=== PATIENT | male | born 1990 | race Caucasian/White ===

== ENCOUNTER 2020-06-07 15:45 | Emergency (ER) | payer SELFPAY ==
[2020-06-07 17:44] LABS: ABSOLUTE MONOCYTES (AUTO) 0.6 10^3/uL (0.1-1.4); ABSOLUTE NEUT (AUTO) 4.2 10^3/uL (1.7-8.2); BASOPHILS % (AUTO) 0.3 % (0-2); EOSINOPHILS % (AUTO) 0.2 % (0-6); HEMATOCRIT 36.4 % (37.9-51.0); HEMOGLOBIN 12.7 g/dL (13.5-17.0); LYMPHOCYTES % (AUTO) 17.4 % (13-45); MEAN CORPUSCULAR HEMOGLOBIN 34.6 pg (27.0-33.4); MEAN CORPUSCULAR HGB CONC 34.9 g/dL (32.0-36.0); MEAN CORPUSCULAR VOLUME 99 fl (80-97); MONOCYTES % (AUTO) 10.7 % (3-13); PLATELET COUNT 104 10^3/uL (150-450); RED BLOOD COUNT 3.67 10^6/uL (4.35-5.55); RED CELL DISTRIBUTION WIDTH 11.9 % (11.5-14.0); SEGMENTED NEUTROPHILS % (AUTO) 71.4 % (42-78); TOTAL CELLS COUNTED % (AUTO) 100 %; WHITE BLOOD COUNT 5.9 10^3/uL (4.0-10.5)
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
[2020-06-07 18:02] LABS: ALBUMIN 3.5 g/dL (3.5-5.0); ALKALINE PHOSPHATASE 99 U/L (38-126); ANION GAP 10 (5-19); ASPARTATE AMINO TRANSFERASE 122 U/L (17-59); BILIRUBIN,DIRECT 0.9 mg/dL (0.0-0.4); BILIRUBIN,TOTAL 3.5 mg/dL (0.2-1.3); BLOOD UREA NITROGEN 6 mg/dL (7-20); CALCIUM 8.3 mg/dL (8.4-10.2); CARBON DIOXIDE 27 mmol/L (22-30); CHLORIDE 91 mmol/L (98-107); GLUCOSE 76 mg/dL (75-110); TOTAL PROTEIN 6.5 g/dL (6.3-8.2); URINE AMPHETAMINES SCREEN NEGATIVE; URINE BARBITURATES SCREEN NEGATIVE; URINE BENZODIAZEPINES SCREEN NEGATIVE; URINE COCAINE SCREEN NEGATIVE; URINE MARIJUANA (THC) SCREEN NEGATIVE; URINE METHADONE SCREEN NEGATIVE; URINE PHENCYCLIDINE SCREEN NEGATIVE
[2020-06-07 18:03] LABS: ACETAMINOPHEN < 10 ug/mL (10-30); ALCOHOL < 10 mg/dL (NONE DETECTED); SALICYLATE < 1.0 mg/dL (2.0-20.0)
[2020-06-07 18:05] LABS: POTASSIUM 2.8 mmol/L (3.6-5.0)
[2020-06-07] MEDS ORDERED: POTASSIUM CHLORIDE 20 MEQ PACKET PO ONE (18:09)
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
[2020-06-07 19:14] LABS: APPEARANCE,URINE SLIGHTLY-CLOUDY; BILIRUBIN,URINE NEGATIVE (NEGATIVE); CALCIUM OXALATE CRYSTALS,URINE FEW /HPF; COLOR,URINE AMBER; GLUCOSE, URINE NEGATIVE (NEGATIVE); KETONES,URINE 20 mg/dL (NEGATIVE); LEUKOCYTE ESTERASE,URINE NEGATIVE (NEGATIVE); NITRITE,URINE NEGATIVE (NEGATIVE); PROTEIN,URINE 100 mg/dL (NEGATIVE); URINE SPECIFIC GRAVITY 1.027
[2020-06-07 19:24] VITALS: BP 120/90
--- NOTE | 2020-06-08 01:09 | EKG REPORT ---
SEVERITY:- BORDERLINE ECG - SINUS RHYTHM BORDERLINE T ABNORMALITIES, INFERIOR LEADS BORDERLINE ST ELEVATION, ANTERIOR LEADS : Confirmed by: Emmy Stein 08-Jun-2020 01:08:51
== END 2020-06-07 19:24 | disposition home or self-care (01) ==
LOC: ER 15:45
DX: F41.9 Anxiety disorder, unspecified (principal); F32.9 Major depressive disorder, single episode, unspecified; E87.6 Hypokalemia; F10.10 Alcohol abuse, uncomplicated; R44.0 Auditory hallucinations; R44.1 Visual hallucinations; R68.83 Chills (without fever); R51 Headache; M79.661 Pain in right lower leg; M25.50 Pain in unspecified joint; R05 Cough; R63.4 Abnormal weight loss; R53.83 Other fatigue; Z87.891 Personal history of nicotine dependence; Z88.1 Allergy status to other antibiotic agents; Z88.8 Allergy status to other drugs, medicaments and biological substances; Z20.828 Contact with and (suspected) exposure to other viral communicable diseases
CPT/HCPCS: 93005; 99285; 36415; 80307 ×4; 83735; 84443; 85025; 87635; 80053; 81001; 93010; J3490; C9803

== ENCOUNTER 2020-06-12 16:42 | Emergency (ER) | payer SELFPAY ==
[2020-06-12 17:57] LABS: ABSOLUTE BASOPHILS # (AUTO) 0.1 10^3/uL (0.0-0.2); ABSOLUTE LYMPHOCYTES (AUTO) 2.5 10^3/uL (0.5-4.7); ABSOLUTE MONOCYTES (AUTO) 0.6 10^3/uL (0.1-1.4); ABSOLUTE NEUT (AUTO) 2.6 10^3/uL (1.7-8.2); BASOPHILS % (AUTO) 1.3 % (0-2); EOSINOPHILS % (AUTO) 0.6 % (0-6); HEMATOCRIT 39.6 % (37.9-51.0); LYMPHOCYTES % (AUTO) 43.2 % (13-45); MEAN CORPUSCULAR HEMOGLOBIN 35.5 pg (27.0-33.4); MEAN CORPUSCULAR HGB CONC 35.3 g/dL (32.0-36.0); MEAN CORPUSCULAR VOLUME 100 fl (80-97); MONOCYTES % (AUTO) 11.1 % (3-13); PLATELET COUNT 278 10^3/uL (150-450); RED BLOOD COUNT 3.94 10^6/uL (4.35-5.55); RED CELL DISTRIBUTION WIDTH 12.3 % (11.5-14.0); SEGMENTED NEUTROPHILS % (AUTO) 43.8 % (42-78); TOTAL CELLS COUNTED % (AUTO) 100 %; WHITE BLOOD COUNT 5.8 10^3/uL (4.0-10.5)
--- NOTE | 2020-06-12 18:00 | ER Document Report ---
ED General - General Chief Complaint: Psych Problem Stated Complaint: PSYCH Time Seen by Provider: 06/12/20 17:47 Notes: 30-year-old male presents emergency department due to desire for alcohol rehab and needing medical clearance. Patient was apparently seen here on for possible seizure versus psychotic episode, was treated at that time, also found to have a potassium of 2.8, stabilized and discharged home. Since then the patient is complaining that he has been having some shaking, feeling scared, having some auditory hallucinations that he states are unformed voices that are murmuring as well as some visual hallucinations that he describes as silhouettes of people. Also complains of some muscle cramping, some intermittent sweats and chills but no fevers and some blurry vision. Due to the symptoms when he called [facility] for help getting into an inpatient alcohol rehab program he was told that he needed to come to the emergency department for medical clearance. [facility] to try to pursue inpatient placement for him for alcohol rehab. Patient states he used to drink approximately half a handle of vodka a day and now he is drinking approximately a quarter of a handle of hard liquor a day. Last alcohol intake was just prior to arrival. TRAVEL OUTSIDE OF THE [place]. IN LAST 30 DAYS: No - Related Data Allergies/Adverse Reactions: cefaclor [From Ceclor] Allergy (Verified 06/07/20 16:05) diphenhydramine [From Benadryl] Allergy (Verified 06/07/20 16:05) Past Medical History - General Information source: Patient, Friend - Social History Smoking Status: Never Smoker Frequency of alcohol use: Heavy - 1/4 handle of hard liquor a day Drug Abuse: None Family History: Reviewed & Not Pertinent Psychiatric Medical History: Reports: Hx Anxiety - never diagnosed, Hx Depression - never diagnosed Past Surgical History: Reports: Hx Orthopedic Surgery - right leg Review of Systems - Review of Systems Constitutional: See HPI, Chills, Diaphoresis. denies: Fever EENT: See HPI, Blurred vision Cardiovascular: No symptoms reported Respiratory: No symptoms reported Gastrointestinal: No symptoms reported Musculoskeletal: See HPI, Other - Muscle cramping. Neurological/Psychological: See HPI, Hallucinations. denies: Homicidal ideation, Suicidal ideation -: Yes All other systems reviewed and negative Physical Exam - Vital signs Vitals: Temp Pulse Resp BP Pulse Ox 98.8 F 120 H 20 148/94 H 98 06/12/20 16:48 06/12/20 16:48 06/12/20 16:48 06/12/20 16:48 06/12/20 16:48 Interpretation: Hypertensive, Tachycardic - Notes Notes: GENERAL: Alert, interacts well. No acute distress. HEAD: Normocephalic, atraumatic EYES: Pupils equal, round and reactive to light, extraocular movements intact. ENT: Oral mucosa moist, tongue midline. NECK: Full range of motion, supple, trachea midline. LUNGS: Clear to auscultation bilaterally, no wheezes, rales or rhonchi, no respiratory distress. HEART: Mildly tachycardic rate and rhythm, no murmurs, gallops, rubs. ABDOMEN: Soft, nontender, nondistended, bowel sounds present in all 4 quadrants. EXTREMITIES: Moves all 4 extremities spontaneously, no edema, radial and dorsalis pedis pulses 2/4 bilaterally. No cyanosis. NEUROLOGICAL: Alert and oriented x3, normal speech, biceps and patellar DTRs 2+ bilaterally. No tremor, no hyperreflexia, no asterixis. PSYCH: Normal mood, normal affect. SKIN: Warm, Dry, normal turgor. Course - Re-evaluation Re-evalutation: 06/12/20 18:49 CBC unremarkable, CMP shows slightly low potassium at 3.4 which will be repleted by mouth, AST and ALT are both elevated, they were elevated previously, ALT is only slightly worsened, this is not acutely concerning for acute liver failure given how minimal the elevation is, urinalysis is unremarkable, salicylates and acetaminophen are undetectable, urine drug screen is negative, alcohol level is 336. Patient currently has minimal signs of alcohol withdrawal, he is not unstable. Repeat vitals show resolution of the tachycardia. We will continue to work with [facility] to pursue placement for alcohol detox. 06/12/20 19:33 Patient is medically cleared. Discussed with [facility], [facility] agrees with allowing patient to be discharged to home while they continue to seek an inpatient alcohol detox bed. Discussed with patient the option of continuing to drink or using Librium to treat any symptoms of alcohol withdrawal that he may develop. Patient would like to have the option of using Librium. Adrian who is a commercial loan closer will control the medication. Patient will be also given limited dosages of potassium to take at home. Discharged home. 06/12/20 19:36 Patient had similar vague unformed auditory and visual hallucinations when he was in here a few days ago. No change, no indication for acute psychiatric consultation. - Vital Signs Vital signs: Temp Pulse Resp BP Pulse Ox 98.5 F 99 16 123/77 99 06/12/20 18:49 06/12/20 18:49 06/12/20 18:49 06/12/20 18:49 06/12/20 18:49 - Laboratory Result Diagrams: 06/12/20 17:35 06/12/20 17:35 Laboratory results interpreted by me: 06/12/20 06/12/20 06/12/20 17:35 17:35 17:35 RBC 3.94 L MCV 100 H MCH 35.5 H Potassium 3.4 L Chloride 108 H BUN 6 L AST 119 H ALT 100 H Urine Urobilinogen 2.0 H Salicylates < 1.0 L Acetaminophen < 10 L Serum Alcohol 336 H* - EKG Interpretation by Me Additional EKG results interpreted by me: 06/12/20 18:00 EKG shows sinus tachycardia at a rate of 107, normal axis, slight right axis deviation, no ST segment elevations or depressions, no T wave inversions per my interpretation. Discharge - Discharge Clinical Impression: Alcohol abuse, Hypokalemia Condition: Stable Disposition: HOME, SELF-CARE Additional Instructions: You may either continue to drink alcohol at approximately her baseline intake or you may use the Librium instead. If you choose to use the Librium please do not start taking it until you are having increasing symptoms of withdrawal such as tremor, increasing hallucinations, sweats. Currently your alcohol level is 336, you should not need Librium for at least 5 hours. When you start feeling like you need the Librium you may take 2 tablets every 4 hours as needed for worsening signs of withdrawal. If you feel like you need more than 2 tablets every 4 hours you should return to the emergency department. [facility] is aware that you have been medically cleared, they are aware that you are being discharged home, they have received a copy of your laboratory studies. I have also printed you a copy of your laboratory studies. They are going to continue to work to find you an inpatient detox bed over the next few days. Prescriptions: Chlordiazepoxide HCl 2 tab PO Q4HP PRN #24 capsule PRN Reason: Withdrawal Symptoms Potassium Chloride 40 meq PO DAILY #8 tablet.er Forms: Return to Work
[2020-06-12 18:01] LABS: APPEARANCE,URINE CLEAR; BILIRUBIN,URINE NEGATIVE (NEGATIVE); COLOR,URINE YELLOW; GLUCOSE, URINE NEGATIVE (NEGATIVE); KETONES,URINE NEGATIVE (NEGATIVE); LEUKOCYTE ESTERASE,URINE NEGATIVE (NEGATIVE); NITRITE,URINE NEGATIVE (NEGATIVE); PROTEIN,URINE NEGATIVE (NEGATIVE); URINE SPECIFIC GRAVITY 1.012
[2020-06-12 18:15] LABS: ALBUMIN 3.7 g/dL (3.5-5.0); ALKALINE PHOSPHATASE 95 U/L (38-126); ANION GAP 6 (5-19); ASPARTATE AMINO TRANSFERASE 119 U/L (17-59); BILIRUBIN,DIRECT 0.2 mg/dL (0.0-0.4); BILIRUBIN,TOTAL 0.6 mg/dL (0.2-1.3); BLOOD UREA NITROGEN 6 mg/dL (7-20); CALCIUM 8.4 mg/dL (8.4-10.2); CARBON DIOXIDE 29 mmol/L (22-30); CHLORIDE 108 mmol/L (98-107); GLUCOSE 98 mg/dL (75-110); POTASSIUM 3.4 mmol/L (3.6-5.0)
[2020-06-12 18:16] LABS: ACETAMINOPHEN < 10 ug/mL (10-30); SALICYLATE < 1.0 mg/dL (2.0-20.0)
[2020-06-12 18:33] LABS: URINE AMPHETAMINES SCREEN NEGATIVE; URINE BARBITURATES SCREEN NEGATIVE; URINE BENZODIAZEPINES SCREEN NEGATIVE; URINE COCAINE SCREEN NEGATIVE; URINE MARIJUANA (THC) SCREEN NEGATIVE; URINE METHADONE SCREEN NEGATIVE; URINE PHENCYCLIDINE SCREEN NEGATIVE
[2020-06-12 18:41] LABS: ALCOHOL 336 mg/dL (NONE DETECTED)
[2020-06-12] MEDS ORDERED: POTASSIUM CHLORIDE 10 MEQ TABLET.ER PO ONE (18:41)
[2020-06-12 19:48] VITALS: BP 145/88
--- NOTE | 2020-06-13 08:36 | EKG REPORT ---
SEVERITY:- OTHERWISE NORMAL ECG - SINUS TACHYCARDIA BORDERLINE RIGHT AXIS DEVIATION : Confirmed by: Katherine Mccall MD 13-Jun-2020 08:35:21
== END 2020-06-12 19:49 | disposition home or self-care (01) ==
LOC: ER 16:42
DX: F10.10 Alcohol abuse, uncomplicated (principal); E87.6 Hypokalemia; R25.1 Tremor, unspecified; R44.0 Auditory hallucinations; R44.1 Visual hallucinations; R25.2 Cramp and spasm; R61 Generalized hyperhidrosis; Z88.8 Allergy status to other drugs, medicaments and biological substances
CPT/HCPCS: 36415; 80053; 80307; 81001; 85025; 93005; 93010; 99284

== ENCOUNTER 2020-10-10 11:47 | Emergency (ER) | payer OTHER, SELFPAY ==
[2020-10-10 12:16] LABS: ABSOLUTE EOSINOPHILS # (AUTO) 0.2 10^3/uL (0.0-0.6); ABSOLUTE MONOCYTES (AUTO) 0.5 10^3/uL (0.1-1.4); ABSOLUTE NEUT (AUTO) 3.8 10^3/uL (1.7-8.2); BASOPHILS % (AUTO) 0.7 % (0-2); EOSINOPHILS % (AUTO) 3.6 % (0-6); HEMATOCRIT 42.4 % (37.9-51.0); HEMOGLOBIN 14.8 g/dL (13.5-17.0); LYMPHOCYTES % (AUTO) 30.4 % (13-45); MEAN CORPUSCULAR HEMOGLOBIN 31.4 pg (27.0-33.4); MEAN CORPUSCULAR HGB CONC 34.9 g/dL (32.0-36.0); MEAN CORPUSCULAR VOLUME 90 fl (80-97); MONOCYTES % (AUTO) 7.6 % (3-13); PLATELET COUNT 156 10^3/uL (150-450); RED CELL DISTRIBUTION WIDTH 13.1 % (11.5-14.0); SEGMENTED NEUTROPHILS % (AUTO) 57.7 % (42-78); TOTAL CELLS COUNTED % (AUTO) 100 %; WHITE BLOOD COUNT 6.5 10^3/uL (4.0-10.5)
[2020-10-10] MEDS ORDERED: DIPH/PERTUSS(ACELL)/TETANUS VAC/PF 0.5 ML SYR (>=10YO) IM ONE (12:21)
--- NOTE | 2020-10-10 12:29 | ER Document Report ---
ED General - General Chief Complaint: Probable Seizure Stated Complaint: POSSIBLE SEIZURE Time Seen by Provider: 10/10/20 11:54 TRAVEL OUTSIDE OF THE [place] IN LAST 30 DAYS: No - HPI Notes: Chief complaint: Possible seizure History of present illness: 30-year-old male with history of alcoholism or here via EMS after occurrence of possible seizure while he was in a dollar store. Patient remembers arriving at the store and looking at some merchandise and his next memory is being loaded onto the EMS truck. He has some abrasions on his face dorsum of his left hand. He denies pain anywhere at this time and denies loss of bowel or bladder control. Patient reports that he had 1 other episode of "possible seizure"several months ago when he was apparently withdrawing from alcohol and had some electrolyte disturbances. He does have a history of alcoholism. He says he is not had anything to drink in the last 21 days. He denies feeling tremulous. He denies nausea or vomiting. He denies fever. He denies any history of head trauma. Last tetanus booster is unknown. - Related Data Allergies/Adverse Reactions: cefaclor [From Ceclor] Allergy (Verified 06/07/20 16:05) diphenhydramine [From Benadryl] Allergy (Verified 06/07/20 16:05) Past Medical History - General Information source: Patient, Relative - Social History Smoking Status: Current Every Day Smoker Frequency of alcohol use: As per HPI Drug Abuse: None Family History: Reviewed & Not Pertinent - Past Medical History Cardiac Medical History: Reports: None Neurological Medical History: Reports: Hx Seizures Psychiatric Medical History: Reports: Hx Anxiety - never diagnosed, Hx Depression - never diagnosed Past Surgical History: Reports: Hx Orthopedic Surgery - right leg Review of Systems - Review of Systems Notes: Constitutional: Negative for fever. HENT: Negative for sore throat. Eyes: Negative for visual changes. Cardiovascular: Negative for chest pain. Respiratory: Negative for shortness of breath. Gastrointestinal: Negative for abdominal pain, vomiting or diarrhea. Genitourinary: Negative for dysuria. Musculoskeletal: Negative for back pain. Skin: Negative for rash. Neurological: As per HPI. 10 point ROS negative except as marked above and in HPI. Physical Exam - Notes Notes: GENERAL: Male patient of approximately stated age appearing in no acute distress. SKIN: Superficial abrasion dorsum left hand. Good turgor no rashes. HEAD: Superficial abrasions right forehead area. EYES: PERRLA. EOMI. Conjunctivae and sclerae clear. EARS: CANALS AND TMS CLEAR. NOSE: CLEAR. MOUTH: Moist mucosa. Good dentition. No stridor or edema. No drooling. No abrasions of tongue present. NECK: Supple. No masses or thyromegaly. No adenopathy. Carotids 2+ without bruits. No JVD. BACK: Symmetrical without tenderness. CHEST: Respirations unlabored. Breath sounds clear and symmetrical. HEART: Regular rhythm. No murmur gallop or rub. ABDOMEN: Soft nontender without masses, organomegaly or rebound. Bowel sounds normally active. No bruits. GENITALIA: Deferred. EXTREMITIES: No edema. No calf tenderness. Cap refill less than 1.5 seconds. Dorsalis pedis and posterior tibial pulses 3+ and symmetrical. NEUROLOGICAL: GCS 15. Alert and oriented x3. Fluent speech. Cranial nerves II through XII intact. Sensorimotor and cerebellar normal. Normal tone. PSYCHIATRIC: Appropriate affect. Course - Re-evaluation Re-evalutation: 10/10/20 15:59 Abrasions were treated and patient was given a tetanus booster here. Head CT and C-spine CT were unremarkable. Urine tox screen negative. Lactate level was not elevated. His CBC and chemistry profile were unremarkable his blood alcohol was less than 10. Normal EKG. Patient was advised that he had had a syncopal episode possibly due to a seizure. He does not appear to be a candidate for initiation of any anticonvulsant medication at this point. I have given him seizure precautions specifically told him not to drive. Avoid refer him to a neurologist for outpatient evaluation anticipating he will need EEG and brain MRI. Findings, clinical impression and plan of treatment have been discussed with patient/family. Understanding of current findings and recommendations has been acknowledged by them and there is agreement regarding disposition and follow-up. - Laboratory Result Diagrams: 10/10/20 11:58 10/10/20 11:58 - Diagnostic Test Radiology reviewed: Image reviewed, Reports reviewed Radiology results interpreted by me: 10/10/20 15:[address] 10/10/20 12:21 IMPRESSION: No evidence of acute intracranial process. Mild mucosal thickening within the ethmoid air cells and bilateral maxillary sinuses. EVIDENCE OF ACUTE STROKE: NO. Cervical Spine CT 10/10/20 12:22 IMPRESSION: No evidence of acute bony abnormality of the cervical spine. Reversal of the normal cervical lordosis, likely related to patient positioning. - EKG Interpretation by Me Additional EKG results interpreted by me: 10/10/20 16:00 Twelve-lead EKG reviewed by me contemporaneously: 1200 hrs. Indication for study: Syncope/possible seizure Rhythm: Sinus tachycardia Rate: 118 Intervals: Normal QRS axis: -[address]/T wave changes: Normal Comparison with prior tracing: None Interpretation: Sinus tachycardia Discharge - Discharge Clinical Impression: Syncope and collapse Condition: Stable Disposition: HOME, SELF-CARE Additional Instructions: Seizure You have had an episode of fainting today which could have been a seizure. Seizure disorders (epilepsy) of one sort or another affect about one out of 50 people. The seizure occurs because of abnormal electrical activity in the brain. Seizures may be due to drugs and alcohol, strokes, brain injury, or infection. In the most common form of epilepsy, no cause can be found. You will require further evaluation to determine the cause of your seizure, and to determine whether anti-seizure medication is required. This follow-up testing is important, so please call us if you encounter problems with scheduling of tests or appointments. YOU SHOULD NOT DRIVE until released to do so by your physician. The law requires that seizures be reported to the hazmat cdl a driver's license bureau--a seizure while driving could be catastrophic. Call the doctor if seizures recur, or if you develop new symptoms such as fever, severe headache, stiff neck, confusion or increasing sleepiness, weakness or numbness, or visual problems. You have been provided the name of a neurologist and you should contact this physician to arrange a visit within the next 7 to 10 days. Return here as needed for new or worsening symptoms: Pain that is worsening or unimproved Uncontrolled vomiting High fever or shaking chills Overall worsening Referrals: TOMI POWELL FNP-C [Primary Care Provider] - Follow up as needed KIMBERLY VEGA MD [NO LOCAL MD] - Follow up as needed
--- NOTE | 2020-10-10 12:35 | EKG REPORT ---
SEVERITY:- OTHERWISE NORMAL ECG - SINUS TACHYCARDIA LEFT AXIS DEVIATION : Confirmed by: Jose Stern MD 10-Oct-2020 12:34:51
[2020-10-10 12:40] LABS: ALBUMIN 4.1 g/dL (3.5-5.0); ALKALINE PHOSPHATASE 63 U/L (38-126); ANION GAP 12 (5-19); ASPARTATE AMINO TRANSFERASE 25 U/L (17-59); BILIRUBIN,DIRECT 0.1 mg/dL (0.0-0.4); BILIRUBIN,TOTAL 0.6 mg/dL (0.2-1.3); BLOOD UREA NITROGEN 7 mg/dL (7-20); CALCIUM 9.4 mg/dL (8.4-10.2); CARBON DIOXIDE 24 mmol/L (22-30); CHLORIDE 103 mmol/L (98-107); GLUCOSE 83 mg/dL (75-110)
[2020-10-10 12:43] LABS: ALCOHOL < 10 mg/dL (NONE DETECTED)
--- NOTE | 2020-10-10 13:25 | RADIOLOGY REPORT (SQ) ---
EXAM DESCRIPTION: CT HEAD WITHOUT IMAGES COMPLETED DATE/TIME: 10/10/2020 1:15 pm REASON FOR STUDY: seizure COMPARISON: None. TECHNIQUE: Axial images acquired through the brain without intravenous contrast. Images reviewed wi th bone, brain and subdural windows. Additional sagittal and coronal reconstructions were generated. Images stored on PACS. All CT scanners at this facility use dose modulation, iterative reconstruction, and/or weight based d osing when appropriate to reduce radiation dose to as low as reasonably achievable (ALARA). [facility]: Dose Right [facility]: CareDose [facility]: Dose Right [facility]: Teradose 4D [facility]: [employer] RADIATION DOSE: CT Rad equipment meets quality standard of care and radiation dose reduction techniq ues were employed. CTDIvol: 53.2 mGy. DLP: 1070 mGy-cm. mGy. LIMITATIONS: None. FINDINGS: VENTRICLES: Normal size and contour. CEREBRUM: No masses. No hemorrhage. No midline shift. No evidence for acute infarction. Normal gra y/white matter differentiation. No areas of low density in the white matter. CEREBELLUM: No masses. No hemorrhage. No alteration of density. No evidence for acute infarction. EXTRAAXIAL SPACES: No fluid collections. No masses. ORBITS AND GLOBE: No intra- or extraconal masses. Normal contour of globe without masses. CALVARIUM: No fracture. PARANASAL SINUSES: Mucosal thickening within the ethmoid air cells and bilateral maxillary sinuses. Remaining sinuses are clear. Mastoid air cells are well aerated. SOFT TISSUES: No mass or hematoma. OTHER: Cerumen within the bilateral external auditory canals. IMPRESSION: No evidence of acute intracranial process. Mild mucosal thickening within the ethmoid air cells and bilateral maxillary sinuses. EVIDENCE OF ACUTE STROKE: NO. COMMENT: Quality ID # [id number]: Final reports with documentation of one or more dose reduction techniques (e.g., Automated exposure control, adjustment of the mA and/or kV according to patient size, use of iterative reconstruction technique) TECHNICAL DOCUMENTATION: JOB ID: [id number] [employer]- All Rights Reserved Reading location - IP/workstation name: [email or web address]
--- NOTE | 2020-10-10 13:27 | RADIOLOGY REPORT (SQ) ---
EXAM DESCRIPTION: CT CERVICAL SPINE WITHOUT IMAGES COMPLETED DATE/TIME: 10/10/2020 1:15 pm REASON FOR STUDY: fall COMPARISON: None. TECHNIQUE: Axial images acquired through the cervical spine without intravenous contrast. Images re viewed with lung, soft tissue and bone windows. Reconstructed coronal and sagittal MPR images review ed. Images stored on PACS. All CT scanners at this facility use dose modulation, iterative reconstruction, and/or weight based d osing when appropriate to reduce radiation dose to as low as reasonably achievable (ALARA). [facility]: Dose Right [facility]: CareDose [facility]: Dose Right [facility]: Teradose 4D [facility]: [employer] RADIATION DOSE: CT Rad equipment meets quality standard of care and radiation dose reduction techniq ues were employed. CTDIvol: 14.3 mGy. DLP: 312 mGy-cm. mGy. LIMITATIONS: None. FINDINGS: ALIGNMENT: Reversal of the normal cervical lordosis. MINERALIZATION: Normal. VERTEBRAL BODIES: No fractures or dislocation. DISCS: Mild disc height loss and endplate change at C6-7. FACETS, LATERAL MASSES, POSTERIOR ELEMENTS: No fractures. No dislocation. No acute findings. HARDWARE: None in the spine. VISUALIZED RIBS: No fractures. LUNG APICES AND SOFT TISSUES: No significant or acute findings. OTHER: No other significant finding. IMPRESSION: No evidence of acute bony abnormality of the cervical spine. Reversal of the normal cervical lordosis, likely related to patient positioning. TECHNICAL DOCUMENTATION: JOB ID: [id number] Quality ID # [id number]: Final reports with documentation of one or more dose reduction techniques (e.g., Au tomated exposure control, adjustment of the mA and/or kV according to patient size, use of iterative reconstruction technique) 2010 [employer]- All Rights Reserved Reading location - IP/workstation name: [email or web address]
[2020-10-10] MEDS ORDERED: NORMAL SALINE 1000 ML 1,000 ML IV ONE (14:43)
[2020-10-10 15:10] LABS: APPEARANCE,URINE CLEAR; BILIRUBIN,URINE NEGATIVE (NEGATIVE); COLOR,URINE YELLOW; GLUCOSE, URINE NEGATIVE (NEGATIVE); KETONES,URINE NEGATIVE (NEGATIVE); LEUKOCYTE ESTERASE,URINE NEGATIVE (NEGATIVE); NITRITE,URINE NEGATIVE (NEGATIVE); PROTEIN,URINE NEGATIVE (NEGATIVE); URINE SPECIFIC GRAVITY 1.009; UROBILINOGEN,URINE NEGATIVE mg/dL (<2.0)
[2020-10-10 15:25] LABS: URINE AMPHETAMINES SCREEN NEGATIVE; URINE BARBITURATES SCREEN NEGATIVE; URINE BENZODIAZEPINES SCREEN NEGATIVE; URINE COCAINE SCREEN NEGATIVE; URINE MARIJUANA (THC) SCREEN NEGATIVE; URINE METHADONE SCREEN NEGATIVE; URINE PHENCYCLIDINE SCREEN NEGATIVE
== END 2020-10-10 16:21 | disposition home or self-care (01) ==
LOC: ER 11:47
DX: R55 Syncope and collapse (principal); S00.81XA Abrasion of other part of head, initial encounter; S60.512A Abrasion of left hand, initial encounter; W19.XXXA Unspecified fall, initial encounter; Y93.89 Activity, other specified; Y92.512 Supermarket, store or market as the place of occurrence of the external cause; R00.0 Tachycardia, unspecified; F17.200 Nicotine dependence, unspecified, uncomplicated; Z88.1 Allergy status to other antibiotic agents; Z88.8 Allergy status to other drugs, medicaments and biological substances; Z23 Encounter for immunization
CPT/HCPCS: 93005; 99285; 96360; 90471; 36415; 80307 ×2; 83605; 83735; 85025; 80053; 81001; 70450; 72125; 90715; 93010; J7030